=== PATIENT | male | born 1935 | race Caucasian/White ===

== ENCOUNTER → 2019-05-02 | Outpatient (CLI) | payer MEDICARE, OTHER ==
[~2019-05-02] VITALS: Ht 157.5 cm; Wt 68.0 kg
[~2019-05-02] MED LIST: ALLO100T PO; AMLO10TA7 PO; ASPI-1111 PO; ATOR40TA28 PO; CALC25 PO; CARV12 PO; CHOL500043 PO; COMBISP IH; CYAN500T65 PO; ESOM20CA31 PO; FERR-89 PO; FINA-27 PO; FOLI1 PO; FURO20 PO; ISON300 PO; LISI-661 PO; PYRI-12 PO; SODI650T PO; TERA5CAP12 PO; UMEC62.5 IH
[2019-05-02 10:45] VITALS: BP 100/44
== END | disposition home or self-care (01) ==
LOC: SRCNTR 10:44
PROVIDERS: ATTEND Internal Medicine Cardiovascular Disease
DX: M54.5 Low back pain (principal); J44.9 Chronic obstructive pulmonary disease, unspecified; I12.9 Hypertensive chronic kidney disease with stage 1 through stage 4 chronic kidney disease, or unspecified chronic kidney disease; N18.9 Chronic kidney disease, unspecified; E78.5 Hyperlipidemia, unspecified
CPT/HCPCS: G0463

== ENCOUNTER → 2019-10-04 | Outpatient (CLI) | payer MEDICARE, OTHER ==
[~2019-10-04] MED LIST changes: +ALLO-44 PO; -ALLO100T PO; +AMLO-258 PO; -AMLO10TA7 PO; +FOLI-130 PO; -FOLI1 PO
== END | disposition home or self-care (01) ==
LOC: SRCNTR 14:38
PROVIDERS: ATTEND Internal Medicine Cardiovascular Disease
DX: I13.0 Hypertensive heart and chronic kidney disease with heart failure and stage 1 through stage 4 chronic kidney disease, or unspecified chronic kidney disease (principal); N18.6 End stage renal disease; J44.9 Chronic obstructive pulmonary disease, unspecified; E78.5 Hyperlipidemia, unspecified
CPT/HCPCS: Q3014

== ENCOUNTER → 2019-12-27 | Outpatient (CLI) | payer MEDICARE, OTHER ==
[~2019-12-27] VITALS: Ht 160 cm; Wt 68.0 kg
[~2019-12-27] MED LIST changes: +TELM80TA2 PO
[2019-12-27 14:08] VITALS: BP 140/56
== END | disposition home or self-care (01) ==
LOC: SRCNTR 14:07
PROVIDERS: ATTEND Internal Medicine Cardiovascular Disease
DX: I65.22 Occlusion and stenosis of left carotid artery (principal); I12.0 Hypertensive chronic kidney disease with stage 5 chronic kidney disease or end stage renal disease; N18.6 End stage renal disease; J44.9 Chronic obstructive pulmonary disease, unspecified; E78.5 Hyperlipidemia, unspecified; I25.10 Atherosclerotic heart disease of native coronary artery without angina pectoris; Z99.2 Dependence on renal dialysis; Z79.899 Other long term (current) drug therapy
CPT/HCPCS: G0463

== ENCOUNTER → 2020-05-07 | Outpatient (CLI) | payer MEDICARE, OTHER ==
[~2020-05-07] MED LIST changes: -ALLO-44 PO; +ALLO100T2 PO; -AMLO-258 PO; -CALC25 PO; -CYAN500T65 PO; +CYAN500T9 PO; -FERR-89 PO; -LISI-661 PO; +LISI-893 PO; -SODI650T PO; +SODI650T33 PO
== END | disposition home or self-care (01) ==
LOC: SRCNTR 10:50
PROVIDERS: ATTEND Internal Medicine Cardiovascular Disease
DX: I12.0 Hypertensive chronic kidney disease with stage 5 chronic kidney disease or end stage renal disease (principal); N18.6 End stage renal disease; E78.5 Hyperlipidemia, unspecified; J44.9 Chronic obstructive pulmonary disease, unspecified; I25.10 Atherosclerotic heart disease of native coronary artery without angina pectoris; Z87.891 Personal history of nicotine dependence; Z98.62 Peripheral vascular angioplasty status
CPT/HCPCS: Q3014

== ENCOUNTER → 2020-07-09 | Outpatient (CLI) | payer MEDICARE, OTHER ==
[~2020-07-09] MED LIST changes: -ASPI-1111 PO; +ASPI-1444 PO; -TERA5CAP12 PO; +TERA5CAP77 PO
== END | disposition home or self-care (01) ==
LOC: SRCNTR 11:03
PROVIDERS: ATTEND Internal Medicine Cardiovascular Disease
DX: I12.0 Hypertensive chronic kidney disease with stage 5 chronic kidney disease or end stage renal disease (principal); N18.6 End stage renal disease; E78.5 Hyperlipidemia, unspecified; J44.9 Chronic obstructive pulmonary disease, unspecified; I25.10 Atherosclerotic heart disease of native coronary artery without angina pectoris; Z87.891 Personal history of nicotine dependence; Z99.2 Dependence on renal dialysis
CPT/HCPCS: Q3014

== ENCOUNTER → 2020-12-31 | Outpatient (CLI) | payer MEDICARE, OTHER ==
[~2020-12-31] VITALS: Ht 157.5 cm; Wt 55.3 kg
[2020-12-31 10:33] VITALS: BP 159/76
== END | disposition home or self-care (01) ==
LOC: SRCNTR 10:06
PROVIDERS: ATTEND Internal Medicine Cardiovascular Disease
DX: I12.0 Hypertensive chronic kidney disease with stage 5 chronic kidney disease or end stage renal disease (principal); N18.6 End stage renal disease; I25.10 Atherosclerotic heart disease of native coronary artery without angina pectoris; J44.9 Chronic obstructive pulmonary disease, unspecified; E78.5 Hyperlipidemia, unspecified; Z99.2 Dependence on renal dialysis; Z87.891 Personal history of nicotine dependence
CPT/HCPCS: G0463